=== PATIENT | female | born 1965 | race Hispanic/Latino ===

== ENCOUNTER 2017-10-19 11:50 | Emergency (ER) | payer OTHER ==
[~2017-10-19] VITALS: Ht 157.5 cm; Wt 54.4 kg
[2017-10-19] MEDS ORDERED: MEDROL4 MG PO (12:13)
[2017-10-19] MEDS ORDERED: NAPROXEN500 M1 PO (12:14)
[2017-10-19] MEDS ORDERED: CYCLOBENZAPRINE10 MG PO (12:14)
[2017-10-19] MEDS ORDERED: ROXICODONE15 MG PO (12:33)
== END 2017-10-19 13:19 | disposition home or self-care (01) ==
LOC: ED 11:50
DX: M54.42 Lumbago with sciatica, left side (principal); Z79.899 Other long term (current) drug therapy
CPT/HCPCS: 99282; J1170